=== PATIENT | female | born 1970 | race Caucasian/White ===

== ENCOUNTER 2019-03-10 14:50 | Emergency (ER) | payer SELFPAY ==
[2019-03-10 16:17] LABS: Absolute Lymphocytes (CBC) 2.4 K/uL (0.7-4.9); Basophils % 0.8 % (0-1.3); MPV 7.9 fL (7.6-11.3); RBC Red Blood Cell Count 4.05 M/uL (3.86-4.86)
[2019-03-10 16:28] LABS: Urine Blood 2+ (NEG); Urine Glucose NEGATIVE (NEG); Urine Protein NEGATIVE (NEG); Urine pH 5.5 (5.0-7.0)
--- NOTE | 2019-03-10 16:37 | RAD REPORT ---
EXAM DESCRIPTION: RAD - Chest Single View - 03/10/2019 4:14 pm CLINICAL HISTORY: Chest pain, dyspnea COMPARISON: None. TECHNIQUE: AP portable chest image was obtained 1608 hours . FINDINGS: Lungs are clear. Heart and vasculature are normal. No measurable pleural effusion and no p neumothorax. No acute bony abnormality seen. No acute aortic findings suspected. IMPRESSION: No acute cardiopulmonary process.
[2019-03-10 16:39] LABS: Albumin 3.8 g/dL (3.4-5.0); Bilirubin Total 0.3 mg/dL (0.2-1.0); Potassium 4.2 mmol/L (3.5-5.1)
[2019-03-10] MEDS ORDERED: DIAZEPAM 5 MG TABLET ONE (17:33)
[2019-03-10] MEDS ORDERED: MORPHINE 4 MG/ML SYR ONE (17:34)
[2019-03-10] MEDS ORDERED: Levofloxacin500mg IV 500 MG/100 ML BAG IV ONE (17:34)
[2019-03-10] MEDS ORDERED: ONDANSETRON 4 MG/2 ML VIAL ONE (17:34)
[2019-03-10] MEDS ORDERED: NA CHLORIDE 0.9% 1,000 ML ONE (17:34)
--- NOTE | 2019-03-10 17:35 | RAD REPORT ---
EXAM DESCRIPTION: CT - Chest Abdomen Pelvis W Cont - 03/10/2019 5:00 pm CLINICAL HISTORY: Fall, chest pain, rib pain, abdominal pain COMPARISON: None. TECHNIQUE: Following dynamic enhancement using 100 milliliters nonionic IV contrast, axial imaging o f the chest, abdomen and pelvis was performed. Biphasic technique was utilized through the abdomen. No oral contrast administered. All CT scans are performed using dose optimization technique as appropriate and may include automated exposure control or mA/KV adjustment according to patient size. FINDINGS: Minimal scarring or atelectasis change in the right base. No pulmonary contusion or acute lung parenchymal process. No pleural effusion, pleural thickening or pneumothorax. No significant aor tic or pulmonary arterial tree finding. Mediastinal and hilar regions show no mass or abnormal lympha denopathy. No chest wall mass or axillary lymphadenopathy. No displaced rib fractures are present and no nondisplaced rib fractures identifiable. No clavicle, scapula or shoulder joint abnormalities marifer ntifiable. The liver, spleen and pancreas show no suspicious findings. Gallbladder and biliary tree are unremark able. Gallstones can be occult on CT imaging. Symmetric renal function is seen with no mass or hydro nephrosis. No adrenal abnormalities. No dilated bowel loops or focal bowel wall thickening. No acute GI findings seen. No free fluid, free air or stranding. No acute or destructive bony process. Degenerative changes are present. No significant vascular findings. IMPRESSION: CT chest, abdomen and pelvis imaging shows no acute traumatic injury. No significant fin dings noted.
--- NOTE | 2019-03-10 18:06 | ER ---
Nurse's Notes [facility] Name: Kathia Avery Age: 48 yrs Sex: Female : 1970 Arrival Date: 03/10/2019 Time: 14:55 Bed 19 Private MD: Diagnosis: Fall due to bumping against object;Multiple fractures of ribs, right side-clinically;Urinary tract infection, site not specified Presentation: 03/10 14:57 Presenting complaint: Patient states: last Saturday a large dog took me down and it tw2 hasnt got better its go worse and i hurts when i take a deep breath. Transition of care: patient was not received from another setting of care. Onset of symptoms was March 10, 2019. Risk Assessment: Do you want to hurt yourself or someone else? Patient reports no desire to harm self or others. Initial Sepsis Screen: Does the patient meet any 2 criteria? No. Patient's initial sepsis screen is negative. Does the patient have a suspected source of infection? No. Patient's initial sepsis screen is negative. Care prior to arrival: None. 14:57 Method Of Arrival: Ambulatory tw2 14:57 Acuity: FELISHA 3 tw2 Triage Assessment: 15:00 General: Appears uncomfortable, Behavior is cooperative. Pain: Complains of pain in tw2 RIGHT ribs. 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 - Social history:: Smoking status: Patient uses tobacco products, smokes one-half pack cigarettes per day. - Ebola Screening: : Patient denies travel to an Ebola-affected area in the 21 days before illness onset. Screenin:45 Abuse screen: Denies threats or abuse. Denies injuries from another. Nutritional aj1 screening: No deficits noted. Tuberculosis screening: No symptoms or risk factors identified. 17:45 Fall Risk None identified. aj1 Assessment: 15:45 General: Appears in no apparent distress. uncomfortable, Behavior is calm, cooperative, aj1 appropriate for age. Pain: Complains of pain in right breast and right lateral anterior chest and right lateral posterior chest and anterior aspect of right upper chest Pain does not radiate. Pain currently is 8 out of 10 on a pain scale. Aggravated by repositioning. Neuro: Level of Consciousness is awake, alert, obeys commands, Oriented to person, place, time, situation. Cardiovascular: Reports chest pain, that is aggravated by movement. States that she fell and hit her chest recently Heart tones S1 S2 present Patient's skin is warm and dry. Respiratory: Airway is patent Respiratory effort is even, unlabored, Respiratory pattern is regular, symmetrical, Breath sounds are clear bilaterally. GI: No signs and/or symptoms were reported involving the gastrointestinal system. : No signs and/or symptoms were reported regarding the genitourinary system. EENT: No signs and/or symptoms were reported regarding the EENT system. Derm: No signs and/or symptoms reported regarding the dermatologic system. Skin is pink, warm \T\ dry. normal. Musculoskeletal: No signs and/or symptoms reported regarding the musculoskeletal system. Circulation, motion, and sensation intact. 16:45 Reassessment: Patient appears in no apparent distress at this time. No changes from aj1 previously documented assessment. Patient and/or family updated on plan of care and expected duration. Pain level reassessed. Patient is alert, oriented x 3, equal unlabored respirations, skin warm/dry/pink. 17:45 Reassessment: Patient appears in no apparent distress at this time. No changes from aj1 previously documented assessment. Patient and/or family updated on plan of care and expected duration. Pain level reassessed. Patient is alert, oriented x 3, equal unlabored respirations, skin warm/dry/pink. Vital Signs: 14:58 BP 115 / 77; Pulse 87; Resp 17; Temp 97.6(TE); Pulse Ox 100% on R/A; Weight 61.23 kg tw2 (R); Height 5 ft. 0 in. (152.40 cm) (R); Pain 9/10; 15:45 BP 122 / 89; Pulse 92; Resp 18; Pulse Ox 97% on R/A; aj1 17:45 BP 112 / 62; Pulse 80; Resp 16; Pulse Ox 98% on R/A; aj1 14:58 Body Mass Index 26.37 (61.23 kg, 152.40 cm) tw2 ED Course: 14:55 Patient arrived in ED. mr 14:58 Triage completed. tw2 14:58 Arm band placed on. tw2 15:08 John Harrington MD is Attending Physician. [facility] 15:43 Radiology exam delayed due to lab results not completed at this time. (BUN/Creatinine) vm2 IV insertion attempt and/or patient not having appropriate IV at this time. 15:44 Sylwia Hackett, RN is Primary Nurse. aj1 15:45 Patient has correct armband on for positive identification. Bed in low position. Call aj1 light in reach. Side rails up X 1. 16:07 Urine Culture Sent. aj1 16:14 Chest Single View XRAY In Process Unspecified. EDMS 16:16 Radiology exam delayed due to lab results not completed at this time. (BUN/Creatinine). vm2 16:39 Radiology exam delayed due to lab results not completed at this time. (BUN/Creatinine). vm2 16:[address] 2 17:03 CT Chest, Abdomen, Pelvis - W/Contrast: iv only In Process Unspecified. EDMS 18:54 No provider procedures requiring assistance completed. IV discontinued, intact, hb bleeding controlled, No redness/swelling at site. Pressure dressing applied. Administered Medications: 17:43 Drug: Zofran 4 mg Route: IVP; Site: right antecubital; hb 18:45 Follow up: Response: No adverse reaction; Pain is decreased; RASS: Alert and Calm (0) aj1 18:45 Follow up: Response: No adverse reaction [facility] 17:43 Drug: Valium 5 mg Route: PO; hb 18:45 Follow up: Response: No adverse reaction [facility] 17:43 Drug: levofloxacin 500 mg Volume: 100 ml; Route: IVPB; Infused Over: 60 mins; Site: hb right antecubital; 18:45 Follow up: IV Status: Completed infusion; IV Intake: 100ml aj1 17:44 Drug: NS 0.9% 1000 ml Route: IV; Rate: 1 bolus; Site: right antecubital; hb 18:45 Follow up: IV Status: Completed infusion; IV Intake: 1000ml [facility] 17:44 Drug: morphine 4 mg Route: IVP; Site: right antecubital; hb 18:45 Follow up: Response: No adverse reaction; Pain is decreased; RASS: Alert and Calm (0) aj1 Intake: 18:45 IV: 1000ml; Total: 1000ml. aj1 18:45 IV: 100ml; Total: 1100ml. aj1 Outcome: 18:05 Discharge ordered by . kenyetta 18:54 Discharged to home ambulatory. 18:54 Condition: stable 18:54 Discharge instructions given to patient, Instructed on discharge instructions, follow up and referral plans. medication usage, Demonstrated understanding of instructions, follow-up care, medications, Prescriptions given X 3. 18:56 Patient left the ED. hb Signatures: Dispatcher [employer] EDMS Sylwia Hackett RN RN aj1 John Harrington MD MD cha Rivera, Mary mr Baxter, Heather, RN RN hb Wise, Tara, RN RN [facility]
--- NOTE | 2019-03-10 18:06 | EDPHYS ---
Physician Documentation [facility] Name: Kathia Avery Age: 48 yrs Sex: Female : 1970 Arrival Date: 03/10/2019 Time: 14:55 Bed 19 Private MD: ED Physician John Harrington HPI: 03/10 15:37 This 48 yrs old Female presents to ER via Ambulatory with complaints of Fall kenyetta Injury, Rib pain. 15:37 Details of fall: The patient fell from an upright position, while running. Onset: The kenyetta symptoms/episode began/occurred 6 day(s) ago. Associated injuries: The patient sustained injury to the chest, pain with breathing, pain with movement, tenderness. Severity of symptoms: At their worst the symptoms were moderate, in the emergency department the symptoms are unchanged. The patient has not experienced similar symptoms in the past. 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 - Social history:: Smoking status: Patient uses tobacco products, smokes one-half pack cigarettes per day. - Ebola Screening: : Patient denies travel to an Ebola-affected area in the 21 days before illness onset. ROS: 15:38 Constitutional: Negative for fever, chills, and weight loss, Eyes: Negative for injury, kenyetta pain, redness, and discharge, ENT: Negative for injury, pain, and discharge, Neck: Negative for injury, pain, and swelling, Cardiovascular: Negative for chest pain, palpitations, and edema, Abdomen/GI: Negative for abdominal pain, nausea, vomiting, diarrhea, and constipation, Back: Negative for injury and pain, : Negative for injury, bleeding, discharge, and swelling, MS/Extremity: Negative for injury and deformity, Skin: Negative for injury, rash, and discoloration, Neuro: Negative for headache, weakness, numbness, tingling, and seizure, Psych: Negative for depression, anxiety, suicide ideation, homicidal ideation, and hallucinations, Allergy/Immunology: Negative for hives, rash, and allergies, Endocrine: Negative for neck swelling, polydipsia, polyuria, polyphagia, and marked weight changes, Hematologic/Lymphatic: Negative for swollen nodes, abnormal bleeding, and unusual bruising. 15:38 Respiratory: Positive for cough, pleurisy, of the anterior aspect of right upper chest, diaphragm, right lateral posterior chest, right lateral anterior chest and right breast, shortness of breath. Exam: 15:38 Constitutional: This is a well developed, well nourished patient who is awake, alert, kenyetta and in no acute distress. Head/Face: Normocephalic, atraumatic. Eyes: Pupils equal round and reactive to light, extra-ocular motions intact. Lids and lashes normal. Conjunctiva and sclera are non-icteric and not injected. Cornea within normal limits. Periorbital areas with no swelling, redness, or edema. ENT: Nares patent. No nasal discharge, no septal abnormalities noted. Tympanic membranes are normal and external auditory canals are clear. Oropharynx with no redness, swelling, or masses, exudates, or evidence of obstruction, uvula midline. Mucous membranes moist. Neck: Trachea midline, no thyromegaly or masses palpated, and no cervical lymphadenopathy. Supple, full range of motion without nuchal rigidity, or vertebral point tenderness. No Meningismus. Cardiovascular: Regular rate and rhythm with a normal S1 and S2. No gallops, murmurs, or rubs. Normal PMI, no JVD. No pulse deficits. Respiratory: Lungs have equal breath sounds bilaterally, clear to auscultation and percussion. No rales, rhonchi or wheezes noted. No increased work of breathing, no retractions or nasal flaring. Abdomen/GI: Soft, non-tender, with normal bowel sounds. No distension or tympany. No guarding or rebound. No evidence of tenderness throughout. Back: No spinal tenderness. No costovertebral tenderness. Full range of motion. Female : Normal external genitalia. Skin: Warm, dry with normal turgor. Normal color with no rashes, no lesions, and no evidence of cellulitis. MS/ Extremity: Pulses equal, no cyanosis. Neurovascular intact. Full, normal range of motion. Neuro: Awake and alert, GCS 15, oriented to person, place, time, and situation. Cranial nerves II-XII grossly intact. Motor strength 5/5 in all extremities. Sensory grossly intact. Cerebellar exam normal. Normal gait. Psych: Awake, alert, with orientation to person, place and time. Behavior, mood, and affect are within normal limits. 15:38 Chest/axilla: Inspection: normal, Palpation: tenderness, that is mild, that is moderate, of the anterior aspect of right upper chest, right lateral posterior chest, right lateral anterior chest and right breast. Vital Signs: 14:58 BP 115 / 77; Pulse 87; Resp 17; Temp 97.6(TE); Pulse Ox 100% on R/A; Weight 61.23 kg tw2 (R); Height 5 ft. 0 in. (152.40 cm) (R); Pain 9/10; 15:45 BP 122 / 89; Pulse 92; Resp 18; Pulse Ox 97% on R/A; aj1 17:45 BP 112 / 62; Pulse 80; Resp 16; Pulse Ox 98% on R/A; aj1 14:58 Body Mass Index 26.37 (61.23 kg, 152.40 cm) tw2 MDM: 15:08 Patient medically screened. [facility] 15:39 Data reviewed: vital signs, nurses notes, lab test result(s), radiologic studies, CT [facility] scan, plain films. 03/10 15:36 Order name: CBC with Diff; Complete Time: 18:03 [facility] 03/10 15:36 Order name: Comprehensive Metabolic Panel; Complete Time: 18:03 [facility] 03/10 15:36 Order name: Chest Single View XRAY; Complete Time: 18:03 [facility] 03/10 15:36 Order name: INCENTIVE SPIROMETRY [facility] 03/10 15:36 Order name: Urine Culture [facility] 03/10 16:03 Order name: Urine Dipstick--Ancillary (enter results); Complete Time: 18:03 03/10 15:36 Order name: CT Chest, Abdomen, Pelvis - W/Contrast: iv only; Complete Time: 18:03 [facility] 03/10 15:36 Order name: Urine Dipstick-Ancillary (obtain specimen); Complete Time: 16:07 [facility] Administered Medications: 17:43 Drug: Zofran 4 mg Route: IVP; Site: right antecubital; hb 18:45 Follow up: Response: No adverse reaction; Pain is decreased; RASS: Alert and Calm (0) [facility] 18:45 Follow up: Response: No adverse reaction aj1 17:43 Drug: Valium 5 mg Route: PO; hb 18:45 Follow up: Response: No adverse reaction aj1 17:43 Drug: levofloxacin 500 mg Volume: 100 ml; Route: IVPB; Infused Over: 60 mins; Site: hb right antecubital; 18:45 Follow up: IV Status: Completed infusion; IV Intake: 100ml aj1 17:44 Drug: NS 0.9% 1000 ml Route: IV; Rate: 1 bolus; Site: right antecubital; hb 18:45 Follow up: IV Status: Completed infusion; IV Intake: 1000ml aj1 17:44 Drug: morphine 4 mg Route: IVP; Site: right antecubital; hb 18:45 Follow up: Response: No adverse reaction; Pain is decreased; RASS: Alert and Calm (0) aj Disposition: 03/10/19 18:05 Discharged to Home. Impression: Fall due to bumping against object, Multiple fractures of ribs, right side - clinically, Urinary tract infection, site not specified. - Condition is Stable. - Discharge Instructions: Fall Prevention in the Home, Rib Fracture, Urinary Tract Infection, Adult, Urinary Tract Infection, Adult, [id number], Fall Prevention in the Home, [id number]-[id number], Rib Fracture, [id number]. - Prescriptions for Tylenol- Codeine #3 300-30 mg Oral Tablet - take 2 tablet by ORAL route every 6 hours As needed; 30 tablet. Valium 5 mg Oral Tablet - take 1 tablet by ORAL route every 8 hours As needed; 20 tablet. Levaquin 500 mg Oral Tablet - take 1 tablet by ORAL route once daily for 7 days; 7 tablet. - Medication Reconciliation Form, Thank You Letter, Antibiotic Education, Prescription Opioid Use form. - Follow up: Private Physician; When: 2 - 3 days; Reason: Recheck today's complaints, Continuance of care, Re-evaluation by your physician. - Problem is new. - Symptoms have improved. Signatures: Dispatcher [employer] John Everett MD MD cha Baxter, Heather, RN RN Karlie Nicolas RN RN tw2 Sylwia Hackett RN aj1 Corrections: (The following items were deleted from the chart) 18:56 18:05 03/10/2019 18:05 Discharged to Home. Impression: Fall due to bumping against hb object; Multiple fractures of ribs, right side - clinically; Urinary tract infection, site not specified. Condition is Stable. Discharge Instructions: Fall Prevention in the Home, Rib Fracture, Fall Prevention in the Home, [id number], Rib Fracture, [id number], Urinary Tract Infection, Adult, Urinary Tract Infection, Adult, [id number]. Prescriptions for Tylenol-Codeine #3 300-30 mg Oral Tablet - take 2 tablet by ORAL route every 6 hours As needed; 30 tablet, Valium 5 mg Oral Tablet - take 1 tablet by ORAL route every 8 hours As needed; 20 tablet, Levaquin 500 mg Oral Tablet - take 1 tablet by ORAL route once daily for 7 days; 7 tablet. and Forms are Medication Reconciliation Form, Thank You Letter, Antibiotic Education, Prescription Opioid Use. Follow up: Private Physician; When: 2 - 3 days; Reason: Recheck today's complaints, Continuance of care, Re-evaluation by your physician. Problem is new. Symptoms have improved. kenyetta
[2019-03-10 20:13] VITALS: BP 115/77; TEMP 97.6; O2SAT 100
== END 2019-03-10 18:56 | disposition home or self-care (01) ==
LOC: ER 14:50
DX: S22.41XA Multiple fractures of ribs, right side, initial encounter for closed fracture (principal); N39.0 Urinary tract infection, site not specified; F17.210 Nicotine dependence, cigarettes, uncomplicated; W19.XXXA Unspecified fall, initial encounter; Y93.02 Activity, running; Y92.9 Unspecified place or not applicable; Z88.0 Allergy status to penicillin; Z88.2 Allergy status to sulfonamides; Z88.6 Allergy status to analgesic agent
CPT/HCPCS: 36415; 71045; 71260; 74177; 80053; 81003; 85025; 87077; 87086; 87088; 87186; 96365; 96375; 99284; J2405; J7030; Q9967

== ENCOUNTER 2020-03-15 12:26 | Emergency (ER) | payer OTHER, SELFPAY ==
[2020-03-15] MEDS ORDERED: HYDROCODONE/APAP 5/325 MG TAB ONE (14:12)
--- NOTE | 2020-03-15 14:17 | RAD REPORT ---
EXAM DESCRIPTION: RAD - Foot Right 3 View - 03/15/2020 2:11 pm CLINICAL HISTORY: Right foot pain FINDINGS: No fracture or dislocation is seen
--- NOTE | 2020-03-15 14:33 | ER ---
Nurse's Notes [facility] Name: Kathia Avery Age: 49 yrs Sex: Female : 1970 Arrival Date: 03/15/2020 Time: 12:32 Bed 19 Private MD: Diagnosis: Contusion of right foot Presentation: 03/15 12:40 Chief complaint: Patient states: Someone accidentally stepped on right foot yesterday. ll1 Pain and swelling since. Coronavirus screen: Client denies travel out of the [place] in the last 14 days. At this time, the client does not indicate any symptoms associated with coronavirus-19. Ebola Screen: Patient denies travel to an Ebola-affected area in the 21 days before illness onset. Initial Sepsis Screen: Does the patient meet any 2 criteria? No. Patient's initial sepsis screen is negative. Does the patient have a suspected source of infection? Yes: Bone or joint infection. Risk Assessment: Do you want to hurt yourself or someone else? Patient reports no desire to harm self or others. Onset of symptoms was March 14, 2020. 12:40 Method Of Arrival: Wheelchair ll1 12:40 Acuity: FELISHA 4 ll1 Historical: - Allergies: 12:43 NSAIDS; ll1 12:43 PENICILLINS; ll1 12:43 Sulfa (Sulfonamide Antibiotics); ll1 - PMHx: 12:43 Chronic pain; back; ll1 - Immunization history:: Flu vaccine is up to date. - Social history:: Smoking status: Patient reports the use of cigarette tobacco products, smokes one-half pack cigarettes per day. Screenin:30 Abuse screen: Denies threats or abuse. Denies injuries from another. Nutritional jl7 screening: No deficits noted. Tuberculosis screening: No symptoms or risk factors identified. Fall Risk None identified. Assessment: 13:45 General: Appears in no apparent distress. uncomfortable, Behavior is calm, cooperative, jl7 appropriate for age. Pain: Complains of pain in right foot Pain currently is 9 out of 10 on a pain scale. Neuro: Level of Consciousness is awake, alert, obeys commands, Oriented to person, place, time, situation. Cardiovascular: Patient's skin is warm and dry. Respiratory: Airway is patent Respiratory effort is even, unlabored, Respiratory pattern is regular, symmetrical. Derm: Skin is pink, warm \T\ dry. Musculoskeletal: Swelling present in right foot. Vital Signs: 12:40 BP 110 / 85; Pulse 87; Resp 16; Temp 97.2; Pulse Ox 100% ; Weight 62.14 kg; Height 5 ll1 ft. 0 in. (152.40 cm); Pain 9/10; 12:40 Body Mass Index 26.76 (62.14 kg, 152.40 cm) ll1 ED Course: 12:32 Patient arrived in ED. mr 12:42 Triage completed. ll1 12:43 Arm band placed on. ll1 13:26 Guillermo Tam PA is PHCP. [facility] 13:26 Alejandro Moreira MD is Attending Physician. m 14:11 Foot Right 3 View XRAY In Process Unspecified. EDMS 14:20 Breanne Del Rio, LATOYA is Primary Nurse. jl7 14:45 Patient has correct armband on for positive identification. Bed in low position. Call jl7 light in reach. Side rails up X 1. 14:45 Crutch training done. Ortho shoe applied to right foot. jl7 14:55 No provider procedures requiring assistance completed. Patient did not have IV access jl7 during this emergency room visit. Administered Medications: 14:00 Drug: [place] 5 mg-325 mg 1 tabs Route: PO; 14:30 Follow up: Response: No adverse reaction; Pain is decreased jl7 Outcome: 14:32 Discharge ordered by . [facility] 14:55 Discharged to home via wheelchair, with crutches, with family. jl7 14:55 Condition: stable 14:55 Discharge instructions given to patient, Instructed on discharge instructions, follow up and referral plans. medication usage, crutch walking, Demonstrated understanding of instructions, follow-up care, medications, crutch walking, Prescriptions given X 1. 14:57 Patient left the ED. jl7 Signatures: Dispatcher [employer] EDMS Guillermo Tam PA PA jmm BruceAnanya mr MedinaKaren, RN RN ss Breanne Del Rio, LATOYA RN jl7 Francy Odom RN RN ll1
--- NOTE | 2020-03-15 14:33 | EDPHYS ---
Physician Documentation [facility] Name: Kathia Avery Age: 49 yrs Sex: Female : 1970 Arrival Date: 03/15/2020 Time: 12:32 Bed 19 Private MD: ED Physician Alejandro Moreira HPI: 03/15 14:29 This 49 yrs old Female presents to ER via Wheelchair with complaints of Foot jmm Injury. 14:29 The patient presents with an injury, pain. Onset: The symptoms/episode began/occurred jmm acutely, yesterday. Modifying factors: The symptoms are alleviated by nothing. the symptoms are aggravated by movement, weight bearing. Associated signs and symptoms: Pertinent positives: swelling. This is a 49 year old female with a history of chronic pain that presents to the ED with complaints of right foot pain after being stepped on. Patient developed increased swelling today with pain radiating up to the knee. . Historical: - Allergies: 12:43 NSAIDS; ll1 12:43 PENICILLINS; ll1 12:43 Sulfa (Sulfonamide Antibiotics); ll1 - PMHx: 12:43 Chronic pain; back; ll1 - Immunization history:: Flu vaccine is up to date. - Social history:: Smoking status: Patient reports the use of cigarette tobacco products, smokes one-half pack cigarettes per day. ROS: 14:29 Constitutional: Negative for fever, chills, and weight loss, Cardiovascular: Negative jmm for chest pain, palpitations, and edema, Respiratory: Negative for shortness of breath, cough, wheezing, and pleuritic chest pain. 14:29 MS/extremity: Positive for injury or acute deformity, pain. 14:29 All other systems are negative. Exam: 14:29 Constitutional: This is a well developed, well nourished patient who is awake, alert, jmm and in no acute distress. Head/Face: atraumatic. Eyes: EOMI, no conjunctival erythema appreciated ENT: Moist Mucus Membranes Neck: Trachea midline, Supple Chest/axilla: Normal chest wall appearance and motion. Cardiovascular: Regular rate and rhythm. No edema appreciated Respiratory: Normal respirations, no respiratory distress appreciated Abdomen/GI: Non distended, soft Back: Normal ROM Skin: General appearance color normal 14:29 Musculoskeletal/extremity: swelling noted to the right foot, dorsum ttp, full dorsalis pulse, compartments are soft, NVI. 14:29 Skin: Appearance: Color: normal in color. 14:29 Neuro: Orientation: is normal, Mentation: is normal, Memory: is normal. 14:29 Psych: Behavior/mood is pleasant, cooperative. Vital Signs: 12:40 BP 110 / 85; Pulse 87; Resp 16; Temp 97.2; Pulse Ox 100% ; Weight 62.14 kg; Height 5 ll1 ft. 0 in. (152.40 cm); Pain 9/10; 12:40 Body Mass Index 26.76 (62.14 kg, 152.40 cm) ll1 MDM: 13:28 Patient medically screened. [facility] 14:31 Data reviewed: vital signs, nurses notes. Counseling: I had a detailed discussion with [facility] the patient and/or guardian regarding: the historical points, exam findings, and any diagnostic results supporting the discharge/admit diagnosis, radiology results, the need for outpatient follow up, to return to the emergency department if symptoms worsen or persist or if there are any questions or concerns that arise at home. ED course: Xray negative for fracture. Patient advised to follow up with pcp and otherwise given strict return precautions. Patient understood and agrees with the plan of care. . 03/15 12:51 Order name: Foot Right 3 View XRAY; Complete Time: 14:45 snw 03/15 13:31 Order name: Ortho shoe; Complete Time: 14:55 [facility] 03/15 13:31 Order name: Crutches; Complete Time: 14:55 [facility] Administered Medications: 14:00 Drug: [place] 5 mg-325 mg 1 tabs Route: PO; ss 14:30 Follow up: Response: No adverse reaction; Pain is decreased jl7 Disposition: 03/16 06:24 Co-signature as Attending Physician, Alejandro Moreira MD I agree with the assessment and kdr plan of care. Disposition: 03/15/20 14:32 Discharged to Home. Impression: Contusion of right foot. - Condition is Stable. - Discharge Instructions: Foot Contusion. - Prescriptions for orphenadrine citrate 100 mg Oral Tablet Sustained Release - take 1 tablet by ORAL route 2 times per day As needed; 20 tablet. - Medication Reconciliation Form, Thank You Letter, Antibiotic Education, Prescription Opioid Use form. - Follow up: Private Physician; When: 2 - 3 days; Reason: Recheck today's complaints, Continuance of care, Re-evaluation by your physician. Signatures: Dispatcher [employer] EDMS Alejandro Moreira MD MD kdr Mickail, Joel, PA PA jmm Smirch, Shelby, RN RN ss Breanne Del Rio RN RN jl7 Francy Odom RN RN ll1 Corrections: (The following items were deleted from the chart) 03/15 14:57 14:32 03/15/2020 14:32 Discharged to Home. Impression: Contusion of right foot. jl7 Condition is Stable. Forms are Medication Reconciliation Form, Thank You Letter, Antibiotic Education, Prescription Opioid Use. Follow up: Private Physician; When: 2 - 3 days; Reason: Recheck today's complaints, Continuance of care, Re-evaluation by your physician. lenny
[2020-03-15 16:00] VITALS: BP 110/85; TEMP 97.2; O2SAT 100
== END 2020-03-15 14:57 | disposition home or self-care (01) ==
LOC: ER 12:26
DX: S90.31XA Contusion of right foot, initial encounter (principal); W50.0XXA Accidental hit or strike by another person, initial encounter; Y93.9 Activity, unspecified; Y92.9 Unspecified place or not applicable; F17.210 Nicotine dependence, cigarettes, uncomplicated; Z88.0 Allergy status to penicillin; Z88.2 Allergy status to sulfonamides; Z88.6 Allergy status to analgesic agent
CPT/HCPCS: 99284

== ENCOUNTER 2023-04-07 17:43 | Emergency (ER) | payer OTHER, SELFPAY ==
[2023-04-07] MEDS ORDERED: MORPHINE 4 MG/ML SYR ONE ×2 (18:21→19:17)
[2023-04-07] MEDS ORDERED: ONDANSETRON 4 MG/2 ML VIAL ONE (18:21)
[2023-04-07] MEDS ORDERED: NA CHLORIDE 0.9% 1,000 ML ONE ×2 (18:22→20:06)
[2023-04-07 18:25] LABS: Absolute Lymphocytes (CBC) 1.7 K/uL (0.7-4.9); Hematocrit 39.9 % (36.0-45.0); Lymphocytes % 19.9 % (15.3-44.8); MCV 95.1 fL (80-100); MPV 7.3 fL (7.6-11.3); Platelets 235 thou/uL (152-406); RBC Red Blood Cell Count 4.19 M/uL (3.86-4.86)
[2023-04-07 18:47] LABS: Albumin 3.3 g/dL (3.4-5.0); Bilirubin Total 0.6 mg/dL (0.2-1.0); Potassium 3.5 mEq/L (3.5-5.1); Protein, Total 8.1 g/dL (6.4-8.2)
--- NOTE | 2023-04-07 19:36 | RAD REPORT ---
EXAM DESCRIPTION: CT - Abdomen Pelvis W Contrast - 04/07/2023 7:18 pm CLINICAL HISTORY: Abdominal pain COMPARISON: 2019 TECHNIQUE: Computed axial tomography of the abdomen pelvis was obtained. 100 cc Isovue-300 was admin istered intravenously. Oral contrast was not requested which limits evaluation of bowel and appendix All CT scans are performed using dose optimization technique as appropriate and may include automated exposure control or mA/KV adjustment according to patient size. FINDINGS: Fatty liver. Moderate peripancreatic stranding with small amount of ill-defined fluid. Small amount of fluid exten ds into the right anterior pararenal space. No pseudocyst. Spleen, adrenals, kidneys are unremarkable Normal appendix. No evidence of diverticulitis. Hysterectomy. No adnexal mass IMPRESSION: Moderate pancreatitis
[2023-04-07 19:38] LABS: Specific Gravity 1.015 (1.005-1.030); Urine Bacteria None Seen /HPF (<20); Urine Bilirubin NEGATIVE (Negative); Urine Blood Negative (Negative); Urine Clarity Turbid (Clear); Urine Color Light-Yellow (Yellow); Urine Glucose NEGATIVE (Negative); Urine Mucus Slight /HPF (None Seen); Urine Protein TRACE (Negative); Urine RBC <5 /HPF (None Seen); Urine Urobilinogen Normal (Normal)
[2023-04-07] MEDS ORDERED: HYDROMORPHONE HCL 1 MG/ML INJ ONE (20:06)
--- NOTE | 2023-04-07 20:36 | EDPHYS ---
Physician Documentation [facility] Name: Kathia Avery Age: 52 yrs Sex: Female : 1970 Arrival Date: 04/07/2023 Time: 17:43 Bed 20 Private MD: ED Physician Elena Baker HPI: 04/07 18:02 This 52 yrs old Female presents to ER via Ambulatory with complaints of Abdominal Pain, ec2 Nausea/Vomiting. 18:02 Patient arrives today due to concern for upper abdominal pain. Patient reports that she ec2 is having worsening upper abdominal pain which is a prompted evaluation, states a history of gallbladder issues, has previous hysterectomy however no previous right upper quadrant procedures. Patient reports some associated nausea and vomiting, no fevers or chills. Patient denies any urinary complaints. Patient reports no cough or cold symptoms.. Historical: - Allergies: 17:52 NSAIDS; ss 17:52 PENICILLINS; ss 17:52 Sulfa (Sulfonamide Antibiotics); ss - Home Meds: 17:52 None [Active]; ss - PMHx: 17:52 Chronic pain; back; "bad gallbladder" (Chronic pain); ss - Immunization history:: Adult Immunizations up to date. - Social history:: Smoking status: Patient reports the use of cigarette tobacco products, smokes one pack cigarettes per day. Patient uses alcohol, on a daily basis. ROS: 18:05 Constitutional: as per hpi ec2 Exam: 18:05 Constitutional: GEN: NAD Head: atraumatic Eyes: EOMI Ears: External ears are ec2 normal. CV: regular rate LUNGS: no respiratory distress ABD: Tender in the epigastrium and right upper quadrant, no guarding, not rigid SKIN: no evidence of rashes MSK: no evidence of trauma NEURO: moves all extremities equally Vital Signs: 17:50 Pulse 116; Resp 22; Temp 97.9(TE); Pulse Ox 99% on R/A; Weight 70.76 kg; Height 5 ft. 1 ss in. ; 17:52 BP 148 / 91; ss 18:01 BP 172 / 92; Pulse 108; Resp 22; Temp 97(TE); Pulse Ox 97% on R/A; tm6 18:49 BP 142 / 79; Pulse 76; Resp 22; Pulse Ox 100% ; tm6 18:49 Pain 10/10; tm6 19:00 BP 182 / 90; Pulse 97; Resp 20; Pulse Ox 100% ; Pain 10/10; vc1 20:21 BP 161 / 84; Pulse 82; Resp 20; Pulse Ox 97% ; vc1 17:50 Body Mass Index 29.48 (70.76 kg, 154.94 cm) ss 18:49 Pain Scale: Adult tm6 19:00 Pain Scale: Adult vc1 MDM: 17:49 Patient medically screened. ec2 18:05 Data reviewed: vital signs. ED course: Patient arrives today due to concern for upper ec2 abdominal pain. Examination remarkable for abdominal findings as noted above. Will obtain lab work, CT abdomen pelvis, treat the patient symptoms. Currently considered process pancreatitis, cholelithiasis, cholecystitis. Will treat the patient symptoms with crystalloid, antiemetic as well as morphine.. 19:20 ED course: Patient signed out to oncoming physician with pending lab work and imaging.. ec2 19:28 ED course: Patient signed out to me by daytime physician at 7 PM. Patient is a sp3 52-year-old female with chronic pain, prior gallbladder pathology, presents to the ED with right upper quadrant abdominal pain. Work-up is pending including CT scan of the abdomen pelvis and disposition will be subsequent to that. Additional dose of pain medicine has been given however we will be careful given her chronic pain history.. 19:47 ED course: Patient CT scan demonstrates moderate pancreatitis with lipase level also sp3 reading at April 2000. AST ALT are elevated however T. bili is normal and CT demonstrates no significant biliary pathology. There is also no pancreatic pseudocyst. Patient elects to try p.o. challenge and be discharged home. We will give additional fluids and Dilaudid prior to discharge. If she is not able to tolerate, we will admit her to the hospital.. 20:34 ED course: Patient feels much improved after last pain medication and IV fluids. She is sp3 tolerating clear liquid diet. I did offer admission given her lipase level at 1999 however she chooses to go home and states she will return if she is worse. We will allow final amount of fluid to be given and discharge her subsequent to that.. 04/07 18:02 Order name: CBC with Diff; Complete Time: 18:26 ec2 04/07 18:02 Order name: CMP; Complete Time: 19:36 ec2 11/12 18:02 Order name: Lipase; Complete Time: 19:36 2 04/07 18:02 Order name: Urinalysis w/ reflexes; Complete Time: 19:47 [facility] 04/07 18:04 Order name: COVID-19 SARS RT PCR; Complete Time: 19:36 [facility] 04/07 18:04 Order name: Influenza Screen (a \\T\\ B); Complete Time: 19:36 [facility] 04/07 18:02 Order name: CT Abd/Pelvis - IV Contrast Only; Complete Time: 19:36 [facility] 04/07 18:02 Order name: IV Saline Lock; Complete Time: 18:17 2 04/07 18:02 Order name: Labs collected and sent; Complete Time: 18:17 [facility] 04/07 19:49 Order name: PO challenge: Clear liquid; Complete Time: 20:21 sp3 Administered Medications: 18:17 Drug: Ondansetron IVP 4 mg IVP once; over 2 minutes Route: IVP; Site: right forearm; tm6 19:00 Follow up: Response: No adverse reaction; No change in condition vc1 18:18 Drug: NS 0.9% IV 1000 ml IV at 1 bolus Per protocol; 1000 mL bolus Route: IV; Rate: 1 tm6 bolus; Site: right forearm; 18:18 Drug: morphine IVP or IV 4 mg IVP once over 4 mins Route: IVP; Infused Over: 4 mins; tm6 Site: right forearm; 21:19 Follow up: Response: No adverse reaction; No change in condition vc1 19:07 Drug: morphine IVP or IV 4 mg IVP once over 4 mins Route: IVP; Infused Over: 4 mins; vc1 Site: right antecubital; 19:45 Follow up: Response: No adverse reaction; No change in condition vc1 19:59 Drug: HYDROmorphone IVP 1 mg IVP once Route: IVP; Site: right antecubital; vc1 21:19 Follow up: Response: No adverse reaction; Pain is decreased vc1 20:00 Drug: NS 0.9% IV 1000 ml IV at 1 bolus Per protocol; 1000 mL bolus Route: IV; Rate: 1 vc1 bolus; Site: right antecubital; 21:38 Follow up: IV Status: Completed infusion; IV Intake: 1000ml vc1 Disposition Summary: 11/12/23 20:35 Discharge Ordered Notes: Location: Home sp3 Condition: Stable sp3 Diagnosis - Alcohol induced acute pancreatitis without necrosis or infection sp3 Followup: sp3 - With: Private Physician - When: Upon discharge from the Emergency Department - Reason: Recheck today's complaints, Continuance of care Discharge Instructions: - Discharge Summary Sheet sp3 - Acute Pancreatitis sp3 - Pancreatitis Eating Plan sp3 Forms: - Medication Reconciliation Form sp3 - Thank You Letter sp3 - Antibiotic Education sp3 - Prescription Opioid Use sp3 - Patient Portal Instructions sp3 - Leadership Thank You Letter sp3 Prescriptions: - Tramadol 50 mg Oral Tablet - take 1 tablet ORAL route every 8 hours as needed; 12 tablet; Refills: 0, sp3 Product Selection Permitted Signatures: Dispatcher [employer] Karen Sanford RN RN ss Elena Baker MD MD sp3 Elin Epperson RN RN vc1 Mukesh Marks MD MD ec2 Wing Felix RN RN tm6 Corrections: (The following items were deleted from the chart) 18:05 18:02 Patient arrives today due to concern for upper abdominal pain. Patient reports ec2 that she is having worsening upper abdominal pain which is a prompted evaluation, states a history of gallbladder issues, has previous hysterectomy however no previous right upper quadrant procedures. Patient reports some associated nausea and vomiting, no fevers or chills.. ec2
--- NOTE | 2023-04-07 20:36 | ER ---
Nurse's Notes [facility] Name: Kathia Avery Age: 52 yrs Sex: Female : 1970 Arrival Date: 04/07/2023 Time: 17:43 Bed 20 Private MD: Diagnosis: Alcohol induced acute pancreatitis without necrosis or infection Presentation: 04/07 17:50 Chief complaint: Patient states: abd pain, N/V that began yesterday. Pt reports she has ss had a "bad gallbladder" for the past 12 years and is supposed to have it out. Coronavirus screen: Client denies travel out of the [place] in the last 14 days. Ebola Screen: Patient denies exposure to infectious person. Patient denies travel to an Ebola-affected area in the 21 days before illness onset. Initial Sepsis Screen: Does the patient meet any 2 criteria? No. Patient's initial sepsis screen is negative. Does the patient have a suspected source of infection? No. Patient's initial sepsis screen is negative. Risk Assessment: Do you want to hurt yourself or someone else? Patient reports no desire to harm self or others. Onset of symptoms was April 07, 2023. 17:50 Method Of Arrival: Ambulatory ss 17:50 Acuity: FELISHA 3 ss Historical: - Allergies: 17:52 NSAIDS; ss 17:52 PENICILLINS; ss 17:52 Sulfa (Sulfonamide Antibiotics); ss - Home Meds: 17:52 None [Active]; ss - PMHx: 17:52 Chronic pain; back; "bad gallbladder" (Chronic pain); ss - Immunization history:: Adult Immunizations up to date. - Social history:: Smoking status: Patient reports the use of cigarette tobacco products, smokes one pack cigarettes per day. Patient uses alcohol, on a daily basis. Screenin:01 [facility] ED Fall Risk Assessment (Adult) History of falling in the last 3 months, tm6 including since admission No falls in past 3 months (0 pts). Abuse screen: Denies threats or abuse. Denies injuries from another. Nutritional screening: No deficits noted. Tuberculosis screening: No symptoms or risk factors identified. Assessment: 18:01 General: Appears uncomfortable, ill, Behavior is calm, cooperative. Pain: Complains of tm6 pain in abdomen Pain currently is 8 out of 10 on a pain scale. Neuro: Level of Consciousness is awake, alert, obeys commands, Oriented to person, place, time, situation. Cardiovascular: Capillary refill < 3 seconds Patient's skin is warm and dry. Respiratory: Airway is patent Respiratory effort is even, unlabored, Respiratory pattern is regular, symmetrical. GI: Bowel sounds present X 4 quads. Abdomen is tender to palpation in left upper quadrant. : No signs and/or symptoms were reported regarding the genitourinary system. EENT: No signs and/or symptoms were reported regarding the EENT system. Derm: No signs and/or symptoms reported regarding the dermatologic system. Musculoskeletal: No signs and/or symptoms reported regarding the musculoskeletal system. 18:48 Reassessment: Patient and/or family updated on plan of care and expected duration. Pain tm6 level reassessed. Patient is alert, oriented x 3, equal unlabored respirations, skin warm/dry/pink. Patient states symptoms have not improved. 19:00 Reassessment: Patient and/or family updated on plan of care and expected duration. Pain vc1 level reassessed. Patient is alert, oriented x 3, equal unlabored respirations, skin warm/dry/pink. Pain: Complains of pain in left upper quadrant Pain currently is 10 out of 10 on a pain scale. 19:00 Neuro: Ndiaye Agitation-Sedation Scale (RASS): +1 Restless. vc1 20:00 Reassessment: No changes from previously documented assessment. Patient and/or family vc1 updated on plan of care and expected duration. Pain level reassessed. Patient is alert, oriented x 3, equal unlabored respirations, skin warm/dry/pink. 21:00 Reassessment: Patient and/or family updated on plan of care and expected duration. Pain vc1 level reassessed. Patient is alert, oriented x 3, equal unlabored respirations, skin warm/dry/pink. Patient states symptoms have improved. Vital Signs: 17:50 Pulse 116; Resp 22; Temp 97.9(TE); Pulse Ox 99% on R/A; Weight 70.76 kg; Height 5 ft. 1 ss in. ; 17:52 BP 148 / 91; ss 18:01 BP 172 / 92; Pulse 108; Resp 22; Temp 97(TE); Pulse Ox 97% on R/A; tm6 18:49 BP 142 / 79; Pulse 76; Resp 22; Pulse Ox 100% ; tm6 18:49 Pain 10/10; tm6 19:00 BP 182 / 90; Pulse 97; Resp 20; Pulse Ox 100% ; Pain 10/10; vc1 20:21 BP 161 / 84; Pulse 82; Resp 20; Pulse Ox 97% ; vc1 17:50 Body Mass Index 29.48 (70.76 kg, 154.94 cm) ss 18:49 Pain Scale: Adult tm6 19:00 Pain Scale: Adult vc1 ED Course: 17:46 Patient arrived in ED. im 17:49 Mukesh Marks MD is Attending Physician. ec2 17:52 Triage completed. ss 17:52 Arm band placed on right wrist. ss 17:56 Wing Felix, LATOYA is Primary Nurse. tm6 18:01 Patient has correct armband on for positive identification. Placed in gown. Bed in low tm6 position. Call light in reach. Side rails up X 1. Provided Education on: need for blood draw. 18:18 Inserted saline lock: 20 gauge in right forearm, using aseptic technique. tm6 19:14 Attending Physician role handed off by Mukesh Marks MD sp3 19:14 Elena Baker MD is Attending Physician. sp3 19:20 CT Abd/Pelvis - IV Contrast Only In Process Unspecified. EDMS 21:36 No provider procedures requiring assistance completed. IV discontinued, intact, vc1 bleeding controlled, No redness/swelling at site. Pressure dressing applied. Administered Medications: 18:17 Drug: Ondansetron IVP 4 mg IVP once; over 2 minutes Route: IVP; Site: right forearm; tm6 19:00 Follow up: Response: No adverse reaction; No change in condition vc1 18:18 Drug: NS 0.9% IV 1000 ml IV at 1 bolus Per protocol; 1000 mL bolus Route: IV; Rate: 1 tm6 bolus; Site: right forearm; 18:18 Drug: morphine IVP or IV 4 mg IVP once over 4 mins Route: IVP; Infused Over: 4 mins; tm6 Site: right forearm; 21:19 Follow up: Response: No adverse reaction; No change in condition vc1 19:07 Drug: morphine IVP or IV 4 mg IVP once over 4 mins Route: IVP; Infused Over: 4 mins; vc1 Site: right antecubital; 19:45 Follow up: Response: No adverse reaction; No change in condition vc1 19:59 Drug: HYDROmorphone IVP 1 mg IVP once Route: IVP; Site: right antecubital; vc1 21:19 Follow up: Response: No adverse reaction; Pain is decreased vc1 20:00 Drug: NS 0.9% IV 1000 ml IV at 1 bolus Per protocol; 1000 mL bolus Route: IV; Rate: 1 vc1 bolus; Site: right antecubital; 21:38 Follow up: IV Status: Completed infusion; IV Intake: 1000ml vc1 Medication: 18:01 VIS not applicable for this client. tm6 Intake: 21:38 IV: 1000ml; Total: 1000ml. vc1 Outcome: 20:35 Discharge ordered by . sp3 21:37 Discharged to home ambulatory, with significant other, vc1 21:37 Condition: good 21:37 Discharge instructions given to patient, Instructed on discharge instructions, follow up and referral plans. medication usage, Demonstrated understanding of instructions, follow-up care, medications, Prescriptions given X 1, 21:37 Patient left the ED. vc1 Signatures: Dispatcher [employer] Karen Sanford RN RN ss Elena Baker MD MD sp3 Elin Epperson RN RN vc1 Melba Ball Edwin, MD MD ec2 Wing Felix RN RN tm6
[2023-04-07 22:01] VITALS: TEMP 97
[2023-04-07 22:05] VITALS: BP 161/84; O2SAT 97
== END 2023-04-07 21:37 | disposition home or self-care (01) ==
LOC: ER 17:43
DX: K85.20 Alcohol induced acute pancreatitis without necrosis or infection (principal)
CPT/HCPCS: 36415; 74177; 80053; 81001; 83690; 85025; 87635; 87804; 99284; J1170; J2405; J7030; Q9967

== ENCOUNTER 2024-04-29 05:19 | Inpatient (IN) | payer BC, SELFPAY ==
[2024-04-29] MEDS ORDERED: ONDANSETRON 4 MG/2 ML VIAL ONE (06:35)
[2024-04-29] MEDS ORDERED: MORPHINE 4 MG/ML SYR ONE ×2 (06:35→10:43)
[2024-04-29] MEDS ORDERED: KETOROLAC 30 MG/ML INJ ONE (06:35)
[2024-04-29] MEDS ORDERED: NA CHLORIDE 0.9% 1,000 ML ONE ×2 (06:36→10:43)
[2024-04-29] MEDS ORDERED: FAMOTIDINE 20 MG/2 ML VIAL IV ONE (06:36)
[2024-04-29] MEDS ORDERED: MORPHINE 2 MG/ML SYR ONE (06:36)
[2024-04-29 07:05] LABS: Albumin/Globulin Ratio 0.8 (1.1-1.8); Anion Gap 11.6 mEq/L (5.0-15.0); Bilirubin Total 0.7 mg/dL (0.2-1.0); Globulin 5.3 g/dL (2.3-3.5); Potassium 3.6 mEq/L (3.5-5.1); Protein, Total 9.3 g/dL (6.4-8.2)
[2024-04-29 07:10] LABS: Absolute Lymphocytes (CBC) 1.5 K/uL (0.7-4.9); Absolute Monocytes 0.6 K/uL (0.1-1.3); Absolute Neutrophil 9.9 K/uL (1.8-8.0); Basophils % 0.3 % (0-1.3); Eosinophils % 0.1 % (0-4.4); Hematocrit 45.8 % (36.0-45.0); Hemoglobin 15.1 g/dL (12.0-15.0); Lymphocytes % 12.1 % (15.3-44.8); MCH 32.2 pg (27.0-35.0); MCHC 32.9 g/dL (32.0-36.0); MCV 97.7 fL (80-100); MPV 8.5 fL (7.6-11.3); Monocytes % 4.7 % (3.3-12.3); Neutrophils % 82.8 % (41.7-73.7); Nucleated Red Blood Cells % 0.1 % (0-0); Platelets 260 thou/uL (152-406); RBC Red Blood Cell Count 4.69 M/uL (3.86-4.86); Red Cell Distribution Width 13.4 % (12.1-15.2)
--- NOTE | 2024-04-29 08:26 | RAD REPORT ---
EXAMINATION: CT Abdomen Pelvis W Contrast CLINICAL INDICATION: Female, 53 years old. ABD PAIN TECHNIQUE: CT abdomen and pelvis was performed, after the administration of IV contrast, [facility]. Axial, sagittal and coronal reconstructions were obtained. One or more of the following dose reduction techniques were used: Automated exposure control, adjustment of the mA and k V according to patient size, and iterative reconstruction. Unless otherwise specified, incidental findings do not require dedicated imaging follow-up. COMPARISON: 04/07/2023 FINDINGS: LOWER CHEST: The visualized lung bases are clear. LIVER: Mild fatty liver is present. No focal lesion or biliary dilatation is seen. Focus of calcifi cation involving segment IVb is stable. BILIARY SYSTEM: No suspicious abnormalities. SPLEEN: Normal size. No focal lesion. PANCREAS: No focal mass, or ductal dilation. Mild swelling and peripancreatic fluid, most pronounced along the body and tail of the pancreas. No adjacent fluid collections. No regional hypoenhancement. ADRENALS: Normal; no mass. KIDNEYS: Normal size and contour. No hydronephrosis. URINARY BLADDER: Unremarkable. GASTROINTESTINAL TRACT: No evidence of free air, significant intra-abdominal free fluid, bowel obstru ction or abscess. APPENDIX: Normal appendix. LYMPH NODES: No lymphadenopathy. MUSCULOSKELETAL: No acute or suspicious osseous abnormality. ADDITIONAL FINDINGS: None. IMPRESSION: Changes of acute interstitial pancreatitis centered on the body and tail. No peripancreatic fluid or other evidence of complications.
--- NOTE | 2024-04-29 08:31 | RAD REPORT ---
CLINICAL HISTORY: Abdominal pain. COMPARISON: None. TECHNIQUE: US ABDOMEN LIMITED 04/29/2024 5:27 AM [facility] FINDINGS: Liver is normal in echotexture. Common bile duct measures 3 mm. Portal vein is patent. Gallbladder is normally distended without wall thickening, gallstones or pericholecystic fluid. IMPRESSION: Unremarkable gallbladder. Electronically signed by: Joel Santa MD 04/29/2024 06:35 AM [facility] RP Due to temporary technical issues with the PACS/[employer] reporting system, reports are being ludin d by the in-house radiologist without review as a courtesy to ensure prompt reporting the interpreting radiologist is fully responsible for the content of the report. Transcribed Date/Time: 04/29/2024 8:31 AM
--- NOTE | 2024-04-29 09:41 | ER ---
Nurse's Notes [facility] Name: Kathia Avery Age: 53 yrs Sex: Female : 1970 Arrival Date: 04/29/2024 Time: 05:19 Bed 2 Private MD: Diagnosis: Alcohol induced acute pancreatitis without necrosis or infection Presentation: 04/29 06:13 Chief complaint: Patient states: I have had severe right upper abd pain that radiates vc1 across my belly for three days. Coronavirus screen: At this time, the client does not indicate any symptoms associated with coronavirus-19. Ebola Screen: Patient negative for fever greater than or equal to 101.5 degrees Fahrenheit, and additional compatible Ebola Virus Disease symptoms Patient denies exposure to infectious person. Patient denies travel to an Ebola-affected area in the 21 days before illness onset. No symptoms or risks identified at this time. Initial Sepsis Screen: Does the patient meet any 2 criteria? No. Patient's initial sepsis screen is negative. Does the patient have a suspected source of infection? No. Patient's initial sepsis screen is negative. Risk Assessment: Do you want to hurt yourself or someone else? Patient reports no desire to harm self or others. Onset of symptoms was April 26, 2024. 06:13 Method Of Arrival: EMS: [facility] vc1 06:13 Acuity: FELISHA 3 vc1 Triage Assessment: 06:14 General: Appears in no apparent distress. uncomfortable, Behavior is calm, cooperative, vc1 appropriate for age. Pain: Complains of pain in right upper quadrant and left upper quadrant Pain currently is 10 out of 10 on a pain scale. EENT: No deficits noted. No signs and/or symptoms were reported regarding the EENT system. Neuro: No deficits noted. Level of Consciousness is awake, alert, obeys commands, Oriented to person, place, time, situation, Appropriate for age. Cardiovascular: Denies chest pain, Heart tones S1 S2 present Capillary refill < 3 seconds in bilateral fingers Patient's skin is warm and dry. Respiratory: Airway is patent Respiratory effort is even, unlabored, Respiratory pattern is regular, symmetrical, Breath sounds are clear bilaterally. GI: Abdomen is flat, non-distended, Bowel sounds present X 4 quads. Abd is soft and non tender X 4 quads. Reports upper abdominal pain, nausea, Pain is 10 out of 10 on a pain scale. vomiting. : No signs and/or symptoms were reported regarding the genitourinary system. Derm: No signs and/or symptoms reported regarding the dermatologic system. Musculoskeletal: No signs and/or symptoms reported regarding the musculoskeletal system. Historical: - Allergies: 06:14 PENICILLINS; vc1 06:14 Sulfa (Sulfonamide Antibiotics); vc1 - Home Meds: 06:14 buprenorphine-naloxone 8-2 mg sublingual Tablet, Sublingual [Active]; vc1 - PMHx: 06:14 Chronic pain; back; vc1 - PSHx: 06:14 hysterectomy (Chronic pain); vc1 - Immunization history:: Adult Immunizations up to date. - Infectious Disease History:: Denies. - Social history:: Smoking status: Patient reports the use of cigarette tobacco products, smokes one-half pack cigarettes per day, Patient/guardian denies using alcohol, street drugs. - Family history:: not pertinent. - Hospitalizations: : No recent hospitalization is reported. Screenin:30 [facility] ED Fall Risk Assessment (Adult) History of falling in the last 3 months, lg3 including since admission No falls in past 3 months (0 pts) Confusion or Disorientation No (0 pts) Intoxicated or Sedated No (0 pts) Impaired Gait No (0 pts) Mobility Assist Device Used No (0 pt) Altered Elimination No (0 pt) Score/Fall Risk Level 0 - 2 = Low Risk Oriented to surroundings, Maintained a safe environment, Educated pt \T\ family on fall prevention, incl call for assistance when getting out of bed, Assessed \T\ reinforced patient's understanding of fall precautions. Abuse screen: Denies threats or abuse. Denies injuries from another. Nutritional screening: No deficits noted. Tuberculosis screening: No symptoms or risk factors identified. Assessment: 06:30 General: Appears in no apparent distress. uncomfortable, Behavior is cooperative, lg3 fussy. Pain: Complains of pain in abdomen Pain currently is 10 out of 10 on a pain scale. Neuro: No deficits noted. Ndiaye Agitation-Sedation Scale (RASS): 0 - Alert and Calm Level of Consciousness is awake, alert, obeys commands, Oriented to person, place, time, situation. Cardiovascular: No deficits noted. Denies chest pain, shortness of breath, Capillary refill < 3 seconds Clubbing of nail beds is absent JVD is absent Patient's skin is warm and dry. Respiratory: No deficits noted. Airway is patent Respiratory effort is even, unlabored, Respiratory pattern is regular, symmetrical. GI: No deficits noted. Abdomen is round non-distended, Bowel sounds present X 4 quads. Abd is soft X 4 quads Reports lower abdominal pain, upper abdominal pain, cramping, diarrhea, nausea. : No signs and/or symptoms were reported regarding the genitourinary system. EENT: No deficits noted. No signs and/or symptoms were reported regarding the EENT system. Derm: No deficits noted. No signs and/or symptoms reported regarding the dermatologic system. Skin is intact, is healthy with good turgor, Skin is dry, Skin is normal, Skin temperature is warm. Musculoskeletal: No deficits noted. No signs and/or symptoms reported regarding the musculoskeletal system. Circulation, motion, and sensation intact. Range of motion: intact in all extremities. 09:06 General: Appears in no apparent distress. Behavior is calm, cooperative, appropriate ap3 for age. Pain: Complains of pain in abdomen. Neuro: Level of Consciousness is awake, alert, obeys commands, Oriented to person, place, time, situation, Appropriate for age. Cardiovascular: Patient's skin is warm and dry. Respiratory: Airway is patent Respiratory effort is even, unlabored, Respiratory pattern is regular, symmetrical. Musculoskeletal: Range of motion: intact in all extremities. Vital Signs: 06:13 BP 153 / 83; Pulse 52; Resp 18; Temp 98.3; Pulse Ox 100% ; Weight 68.04 kg; Height 5 vc1 ft. 0 in. ; Pain 10/10; 11:00 BP 145 / 78; Pulse 55; Resp 16; Pulse Ox 99% ; ko1 12:00 BP 150 / 80; Pulse 64; Resp 16; Pulse Ox 100% ; ko1 14:00 BP 138 / 77; Pulse 59; Resp 15; Pulse Ox 99% ; ko1 06:13 Body Mass Index 29.29 (68.04 kg, 152.4 cm) vc1 06:13 Pain Scale: Adult vc1 ED Course: 05:25 Patient arrived in ED. gm2 05:27 Helder Campos MD is Attending Physician. sp4 05:55 US Abdomen Limited In Process Unspecified. EDMS 06:14 Triage completed. vc1 06:18 Arm band placed on right wrist. vc1 06:30 Patient has correct armband on for positive identification. Placed in gown. Bed in low lg3 position. Call light in reach. Side rails up X 1. Client placed on continuous cardiac and pulse oximetry monitoring. NIBP monitoring applied. Door closed. Noise minimized. Warm blanket given. Pillow given. 06:30 Patient maintains SpO2 saturation greater than 95% on room air. lg3 06:40 Initial lab(s) drawn, by ED staff, sent to lab. Flu and/or RSV swab sent to lab. lg3 Inserted saline lock: 20 gauge in left antecubital area, using aseptic technique. Blood collected. Flushed with 10 mL NS. 06:41 Influenza Screen (a \T\ B) Sent. lg3 06:41 CBC with Diff Sent. lg3 06:41 CMP Sent. lg3 06:41 Lipase Sent. lg3 07:24 CT Abd/Pelvis - IV Contrast Only In Process Unspecified. EDMS 08:19 Amy Michel, RN is Primary Nurse. ko1 08:20 Pt visited by . ko1 08:25 Attending Physician role handed off by Helder Campos MD rn 08:25 Bernardino Adames MD is Attending Physician. rn 08:56 ED physician to see patient. Pt visited by. ko1 08:56 No provider procedures requiring assistance completed. ko1 09:[address] is Hospitalizing Provider. rn 09:42 Provided Education on: admission. ko1 09:42 Patient admitted, IV remains in place. ko1 10:48 Urinalysis w/ reflexes Sent. ap3 12:49 1249 CM attempted initial assessment, patient lying in bed with eyes closed, ane respirations even and unlabored. 1437 CM met with patient at the bedside in the ED exam room. Patient identified by name and . Demographic sheet confirmed. PCP none. No MPOA at this time. Patient states she lives with her H[facility] in a single story home and that prior to admission, she performs ADLs independently. No DME, no HH, no home oxygen or other medical services at this time .Her preferred plan is to return home and she states that [facility] will transport her home. CM team will continue to follow and coordinate care. Administered Medications: 06:41 Drug: NS 0.9% IV 1000 ml IV at 1 bolus Per protocol; to be given as a bolus over 60 lg3 minutes Route: IV; Rate: 1 bolus; Site: left antecubital; 08:30 Follow up: Response: No adverse reaction; IV Status: Completed infusion; IV Intake: ko1 1000ml 06:41 Drug: morphine IVP or IV 6 mg IVP once over 4 mins Route: IVP; Infused Over: 4 mins; lg3 Site: left antecubital; 07:00 Follow up: Response: No adverse reaction ko1 06:41 Drug: Ketorolac IVP 30 mg IVP once Route: IVP; Site: left antecubital; lg3 07:00 Follow up: Response: No adverse reaction ko1 06:41 Drug: Famotidine IVP 20 mg IVP once; dilute with 10 mL 0.9% NaCl; give over 2 minutes lg3 Route: IVP; Site: left antecubital; 07:00 Follow up: Response: No adverse reaction ko1 06:42 Drug: Ondansetron IVP 4 mg IVP once; over 2 minutes Route: IVP; Site: left antecubital; lg3 07:00 Follow up: Response: No adverse reaction ko1 10:58 Drug: NS 0.9% IV 1000 ml IV at 1000 ml once; to be given as a bolus over 60 minutes cm10 Route: IV; Rate: 1000 ml; Site: left antecubital; 13:00 Follow up: Response: No adverse reaction; IV Status: Completed infusion; IV Intake: ko1 1000ml 10:58 Drug: morphine IVP or IV 4 mg IVP once over 4 mins {Note: Pain level: 7.} Route: IVP; cm10 Infused Over: 4 mins; Site: left antecubital; 11:13 Follow up: Response: No adverse reaction ko1 Medication: 09:07 VIS not applicable for this client. ap3 Intake: 08:30 IV: 1000ml; Total: 1000ml. ko1 13:00 IV: 1000ml; Total: 2000ml. ko1 Outcome: 09:41 Decision to Hospitalize by Provider. rn 15:22 Admitted to Med/surg accompanied by tech, via wheelchair, room 201, with chart, ko1 15:22 Condition: stable 15:22 Instructed on the need for admit, 15:44 Patient left the ED. ko1 Signatures: Dispatcher [employer] EDMS Bernardino Adames MD MD rn Prokisch, Amanda RN RN ap3 Jia Alcazar RN RN lg3 Elin Epperson RN RN vc1 Amy Michel RN RN ko1 Helder Campos MD MD sp4 Ria Urbano RN RN cm10 [place] 2 Alpa Frazier RN RN ane Corrections: (The following items were deleted from the chart) 14:56 14:55 76.66 kg; ko1 ko1
--- NOTE | 2024-04-29 09:41 | EDPHYS ---
Physician Documentation [facility] Name: Kathia Avery Age: 53 yrs Sex: Female : 1970 Arrival Date: 04/29/2024 Time: 05:19 Bed 2 Private MD: ED Physician Bernardino Adames HPI: 04/29 05:29 This 53 yrs old Female presents to ER via Unassigned with complaints of sp4 Nausea/Vomiting, Abdominal Pain. 08:55 The patient presents to the emergency department with nausea, vomiting, abdominal pain. rn Severity of symptoms: At their worst the symptoms were moderate in the emergency department the symptoms are unchanged. The patient has not experienced similar symptoms in the past. Patient reports upper abdominal pain with nausea. Patient states has not been drinking as much alcohol lately but son states otherwise. No known gallbladder problems. Patient denies previous episodes of pancreatitis.. Historical: - Allergies: 06:14 PENICILLINS; vc1 06:14 Sulfa (Sulfonamide Antibiotics); vc1 - Home Meds: 06:14 buprenorphine-naloxone 8-2 mg sublingual Tablet, Sublingual [Active]; vc1 - PMHx: 06:14 Chronic pain; back; vc1 - PSHx: 06:14 hysterectomy (Chronic pain); vc1 - Immunization history:: Adult Immunizations up to date. - Infectious Disease History:: Denies. - Social history:: Smoking status: Patient reports the use of cigarette tobacco products, smokes one-half pack cigarettes per day, Patient/guardian denies using alcohol, street drugs. - Family history:: not pertinent. - Hospitalizations: : No recent hospitalization is reported. ROS: 08:55 Constitutional: Negative for fever, chills, and weight loss, Cardiovascular: Negative rn for chest pain, palpitations, and edema, Respiratory: Negative for shortness of breath, cough, wheezing, and pleuritic chest pain, Abdomen/GI: Negative for diarrhea, and constipation, Neuro: Negative for headache, weakness, numbness, tingling, and seizure, Exam: 08:55 Constitutional: This is a well developed, well nourished patient who is awake, alert, rn appears uncomfortable Cardiovascular: Regular rate and rhythm. No pulse deficits. Respiratory: No increased work of breathing, no retractions or nasal flaring. Abdomen/GI: Soft, epigastric tenderness. No distention Vital Signs: 06:13 BP 153 / 83; Pulse 52; Resp 18; Temp 98.3; Pulse Ox 100% ; Weight 68.04 kg; Height 5 vc1 ft. 0 in. ; Pain 10/10; 11:00 BP 145 / 78; Pulse 55; Resp 16; Pulse Ox 99% ; ko1 12:00 BP 150 / 80; Pulse 64; Resp 16; Pulse Ox 100% ; ko1 14:00 BP 138 / 77; Pulse 59; Resp 15; Pulse Ox 99% ; ko1 06:13 Body Mass Index 29.29 (68.04 kg, 152.4 cm) vc1 06:13 Pain Scale: Adult vc1 MDM: 05:27 Medical Screening Exam initiated sp4 08:55 Differential diagnosis: Nonspecific abd pain, gastritis, pancreatitis, viral rn gastroenteritis, gastroenteritis. Data reviewed: vital signs, nurses notes, lab test result(s), radiologic studies, CT scan, and as a result, I will admit patient. Consideration of Admission/Observation Patient was admitted/placed on observation. Escalation of care including admission/observation considered. Counseling: I had a detailed discussion with the patient and/or guardian regarding the historical points, exam findings, and any diagnostic results supporting the discharge/admit diagnosis, lab results, radiology results, the need for further work-up and treatment in the hospital. ED course: Patient with uncontrolled abdominal pain, CT and labs consistent with acute pancreatitis. Likely alcoholic pancreatitis. Will admit for further care and pain control.. 21:11 ED course: COMPARISON: 04/07/2023 FINDINGS: LOWER CHEST: The visualized lung bases are sp4 clear. LIVER: Mild fatty liver is present. No focal lesion or biliary dilatation is seen. Focus of calcification involving segment IVb is stable. BILIARYSYSTEM: No suspicious abnormalities. SPLEEN: Normal size. No focal lesion. PANCREAS: No focal mass, or ductal dilation. Mild swelling and peripancreatic fluid, most pronounced along the body and tail of the pancreas. No adjacent fluid collections. No regional hypoenhancement. ADRENALS: Normal; no mass. KIDNEYS: Normal size and contour. No hydronephrosis. URINARYBLADDER: Unremarkable. GASTROINTESTINAL TRACT: No evidence of free air, significant intra-abdominal free fluid, bowel obstruction or abscess. APPENDIX: Normal appendix. LYMPH NODES: No lymphadenopathy. MUSCULOSKELETAL: No acute or suspicious osseous abnormality. ADDITIONAL FINDINGS: None. IMPRESSION: Changes of acute interstitial pancreatitis centered on the body and tail. No peripancreatic fluid or other evidence of complications. . ED course: CLINICAL HISTORY: Abdominal pain. COMPARISON: None. TECHNIQUE: US ABDOMEN LIMITED 04/29/2024 5:27 AM INFORMATION RECEPTIONIST FINDINGS: Liver is normal in echotexture. Common bile duct measures 3 mm. Portal vein is patent. Gallbladder is normally distended without wall thickening, gallstones or pericholecystic fluid. IMPRESSION: Unremarkable gallbladder. Electronically signed by: Joel Santa MD 04/29/2024 06:35. 04/29 05:27 Order name: CBC with Diff; Complete Time: 08:34 sp4 04/29 05:27 Order name: CMP; Complete Time: 08:34 sp4 04/29 05:27 Order name: Lipase; Complete Time: 08:34 sp4 04/29 05:27 Order name: Urinalysis w/ reflexes; Complete Time: 21:09 sp4 04/29 06:32 Order name: Influenza Screen (a \T\ B); Complete Time: 08:34 sp4 04/29 06:43 Order name: Troponin High Sensitivity; Complete Time: 21:09 sp4 04/29 06:43 Order name: BNP; Complete Time: 21:09 sp4 04/29 05:27 Order name: CT Abd/Pelvis - IV Contrast Only; Complete Time: 08:34 sp4 04/29 05:27 Order name: US Abdomen Limited; Complete Time: 08:34 sp4 04/29 05:27 Order name: IV Saline Lock; Complete Time: 06:41 sp4 04/29 05:27 Order name: Labs collected and sent; Complete Time: 06:41 sp4 Administered Medications: 06:41 Drug: NS 0.9% IV 1000 ml IV at 1 bolus Per protocol; to be given as a bolus over 60 lg3 minutes Route: IV; Rate: 1 bolus; Site: left antecubital; 08:30 Follow up: Response: No adverse reaction; IV Status: Completed infusion; IV Intake: ko1 1000ml 06:41 Drug: morphine IVP or IV 6 mg IVP once over 4 mins Route: IVP; Infused Over: 4 mins; lg3 Site: left antecubital; 07:00 Follow up: Response: No adverse reaction ko1 06:41 Drug: Ketorolac IVP 30 mg IVP once Route: IVP; Site: left antecubital; lg3 07:00 Follow up: Response: No adverse reaction ko1 06:41 Drug: Famotidine IVP 20 mg IVP once; dilute with 10 mL 0.9% NaCl; give over 2 minutes lg3 Route: IVP; Site: left antecubital; 07:00 Follow up: Response: No adverse reaction ko1 06:42 Drug: Ondansetron IVP 4 mg IVP once; over 2 minutes Route: IVP; Site: left antecubital; lg3 07:00 Follow up: Response: No adverse reaction ko1 10:58 Drug: NS 0.9% IV 1000 ml IV at 1000 ml once; to be given as a bolus over 60 minutes cm10 Route: IV; Rate: 1000 ml; Site: left antecubital; 13:00 Follow up: Response: No adverse reaction; IV Status: Completed infusion; IV Intake: ko1 1000ml 10:58 Drug: morphine IVP or IV 4 mg IVP once over 4 mins {Note: Pain level: 7.} Route: IVP; cm10 Infused Over: 4 mins; Site: left antecubital; 11:13 Follow up: Response: No adverse reaction ko1 Disposition Summary: 04/29/24 09:41 Hospitalization Ordered Notes: Hospitalization Status: Inpatient Admission rn Provider: Radha Street rn Location: Telemetry/[facility] (Inpatient) rn Condition: Stable rn Problem: new rn Symptoms: are unchanged rn Bed/Room Type: Standard rn Room Assignment: 201(04/29/24 14:33) bd Diagnosis - Alcohol induced acute pancreatitis without necrosis or infection rn Forms: - Medication Reconciliation Form rn - SBAR form rn - Leadership Thank You Letter rn Signatures: Dispatcher [employer] EDMS Nicolasa Gordon Roman, MD MD rn Attema, Lee, INFORMATION SECURITY DIRECTOR-C INFORMATION SECURITY DIRECTOR-Cla1 Jia Alcazar RN RN lg3 Elin Epperson RN RN vc1 Helder Campos MD MD sp4 Ria Urbano RN RN cm10 Amy Michel RN ko1 Corrections: (The following items were deleted from the chart) 05:27 05:27 CBC+H.LAB.BRZ ordered. EDMS EDMS 05:27 05:27 COMPREHENSIVE METABOLIC PANEL+C.LAB.BRZ ordered. EDMS EDMS 05:27 05:27 LIPASE+C.LAB.BRZ ordered. EDMS EDMS 05:27 05:27 Urinalysis+U.LAB.BRZ ordered. EDMS EDMS 05:28 05:27 Abdomen Pelvis W Con+CT.RAD.BRZ ordered. EDMS EDMS 05:28 05:28 Abdomen Limited+US.RAD.BRZ ordered. EDMS EDMS 14:33 09:41 rn bd
[2024-04-29 11:06] LABS: Specific Gravity > 1.030 (1.005-1.030); Sqamous Epithelial <5 /HPF (None Seen); Urine Bacteria <20 /HPF (<20); Urine Bilirubin NEGATIVE (Negative); Urine Blood Negative (Negative); Urine Clarity Turbid (Clear); Urine Color Light-Yellow (Yellow); Urine Culture Reflex Order NOT NEEDED; Urine Glucose NEGATIVE (Negative); Urine Ketones 1+ (Negative); Urine Microscopic Reflex YN ORDER UMIC; Urine Mucus Slight /HPF (None Seen); Urine Nitrite NEGATIVE (Negative); Urine Protein 1+ (Negative); Urine RBC <5 /HPF (None Seen); Urine Urobilinogen 2+ (Normal); Urine WBC <5 /HPF (<5); Urine pH 6.5 (5.0-7.0)
[2024-04-29 11:16] LABS: Troponin High Sensitivity 44.4 (<58.9)
--- NOTE | 2024-04-29 15:16 | P.HP ---
Certification for Inpatient Patient admitted to: Inpatient With expected LOS: >2 Midnights Patient will require the following post-hospital care: None Practitioner: I am a practitioner with admitting privileges, knowledge of patient current condition, hospital course, and medical plan of care. Services: Services provided to patient in accordance with Admission requirements found in Title 42 Section 412.3 of the Code of Federal Regulations Patient History Date of Service: 04/29/24 Reason for admission: Acute pancreatitis History of Present Illness: 53-year-old female with past medical history presents emergency department chief complaint of abdominal pain, nausea vomiting for last 3 days. Per chart review she does have 1 surgical episode of pancreatitis, she apparently used to drink heavily and did have 1 drink during Thanksgiving denies drinking heavily. She was evaluated in the emergency department her labs were significant for a lipase of 1569 CT abdomen pelvis with IV contrast was performed which showed acute uncomplicated pancreatitis, ultrasound was also performed is unremarkable for any abnormalities. ED Provider wishes to admit patient for acute pancreatitis - Past Medical/Surgical History -: Hysterectomy Psychosocial/ Personal History: Home with family - Social History Place of Residence: Home Review of Systems 10-point ROS is otherwise unremarkable Gastrointestinal: Nausea, Vomiting, Abdominal Pain Physical Examination - Physical Exam General: Alert, In no apparent distress, Oriented x3 HEENT: Atraumatic, PERRLA, EOMI Neck: Supple, 2+ carotid pulse no bruit, No LAD Respiratory: Clear to auscultation bilaterally, Normal air movement Cardiovascular: Regular rate/rhythm, Normal S1 S2 Gastrointestinal: Normal bowel sounds, Tenderness (moderate epigastric Pain/tenderness) Musculoskeletal: No tenderness Integumentary: No rashes Neurological: Normal gait, Normal speech, Normal strength at 5/5 x4 extr, Normal tone, Normal affect Lymphatics: No axilla or inguinal lymphadenopathy - Studies Laboratory Data (last 24 hrs) 04/29/24 04/29/24 06:39 06:39 WBC 12.00 H Hgb 15.1 H Hct 45.8 H Plt Count 260 Sodium 136 Potassium 3.6 BUN 10 Creatinine 1.04 H Glucose 139 H Total Bilirubin 0.7 AST 24 ALT 21 Alkaline Phosphatase 112 Lipase 1569 H Microbiology Data (last 24 hrs): 04/29/24 06:40 Nasopharnyx Influenza Type A Antigen Screen - Final 04/29/24 06:40 Nasopharnyx Influenza Type B Antigen Screen - Final Assessment and Plan - Plan Assessment: Acute pancreatitis Plan: Acute pancreatitis NPO, IVF, as pain medications and antiemetics Monitor chemistry/lipase Advance diet slowly History of alcohol use, related to pancreatitis Will check lipid panel for triglycerides as well DVT PPX: Lovenox Code status: Full Discharge Plan: Home Plan to discharge in: 48 Hours - Advance Directives Does patient have a Living Will: No Does patient have a Durable POA for Healthcare: No - Code Status/Comfort Care Code Status Assessed: Yes (Full code) Critical Care: No Time Spent Managing Pts Care (In Minutes): 58
[2024-04-29 16:00] VITALS: BMI 29.7
[2024-04-29] MEDS ORDERED: MORPHINE 2 MG/ML SYR IV PRN (16:37)
[2024-04-29] MEDS: Ringers Lactate 1,000 ML IV SCH (17:43)
[2024-04-29] MEDS: MORPHINE 2 MG/ML SYR IV PRN (17:43)
[2024-04-29] MEDS: ONDANSETRON 4 MG/2 ML VIAL IV PRN (17:45)
[2024-04-29] MEDS: NICOTINE 14 MG/PAT TD SCH (18:35)
[2024-04-30 07:07] LABS: Absolute Lymphocytes (CBC) 1.9 K/uL (0.7-4.9); Absolute Monocytes 0.9 K/uL (0.1-1.3); Absolute Neutrophil 8.3 K/uL (1.8-8.0); Basophils % 0.3 % (0-1.3); Eosinophils % 0.3 % (0-4.4); Hematocrit 39.7 % (36.0-45.0); Lymphocytes % 17.3 % (15.3-44.8); MCH 32.1 pg (27.0-35.0); MCHC 32.8 g/dL (32.0-36.0); MCV 97.8 fL (80-100); MPV 8.8 fL (7.6-11.3); Monocytes % 7.8 % (3.3-12.3); Neutrophils % 74.3 % (41.7-73.7); Nucleated Red Blood Cells % 0.1 % (0-0); Platelets 183 thou/uL (152-406); RBC Red Blood Cell Count 4.06 M/uL (3.86-4.86); Red Cell Distribution Width 13.2 % (12.1-15.2)
[2024-04-30 07:34] LABS: Albumin 2.9 g/dL (3.4-5.0); Albumin/Globulin Ratio 0.7 (1.1-1.8); Anion Gap 7.7 mEq/L (5.0-15.0); Bilirubin Total 0.8 mg/dL (0.2-1.0); Globulin 4.2 g/dL (2.3-3.5); Magnesium 1.5 mg/dL (1.6-2.4); Potassium 3.7 mEq/L (3.5-5.1); Protein, Total 7.1 g/dL (6.4-8.2)
[2024-04-30] MEDS ORDERED: ACETAMINOPHEN 325 MG TABLET PO PRN (07:57)
--- NOTE | 2024-04-30 08:41 | P.PN ---
Date of Service: 04/30/24 Subjective: Still with abdominal pain Slightly improved from yesterday Tolerating sips of water ROS: 10 point ROS as noted above, otherwise negative Physical exam GEN: Alert, oriented, NAD HEENT: Normal conjunctiva, sclera anicteric CV: Regular rate and rhythm, no edema Pulm: Nonlabored respirations on room air ABD: Soft, moderate epigastric tenderness, nondistended MSK: No joint tenderness Integumentary: No rashes Neuro: Normal speech, normal affect Vitals reviewed Assessment: Acute pancreatitis Tobacco use disorder Plan: Acute pancreatitis NPO, IVF, as pain medications and antiemetics Monitor chemistry/lipase-improving Advance diet slowly History of alcohol use, related to pancreatitis Triglycerides within normal limits Tobacco use disorder Counseled on need for cessation NicoDerm patch supplied DVT PPX: Lovenox Code status: Full Discharge Plan: Home Plan to discharge in: 48 Hours Time Spent Managing Pts Care (In Minutes): 35
[2024-04-30] MEDS: ENOXAPARIN 40 MG/0.4 ML SQ SCH (10:37)
[2024-04-30] MEDS: MAGNESIUM SULFATE 1 gm IVPB 1 GM/100 ML BAG IV ONE ×2 (12:10→22:41)
[2024-04-30] MEDS: POTASSIUM CL SA 10 MEQ TAB PO ONE (12:11)
[2024-05-01] MEDS: ONDANSETRON 4 MG/2 ML VIAL IV PRN (01:21)
[2024-05-01 02:39] VITALS: O2SAT 92
[2024-05-01 06:24] LABS: Absolute Basophils 0.1 K/uL (0-0.5); Absolute Eosinophils 0.1 K/uL (0-0.5); Absolute Lymphocytes (CBC) 1.4 K/uL (0.7-4.9); Absolute Neutrophil 8.8 K/uL (1.8-8.0); Basophils % 0.5 % (0-1.3); Eosinophils % 0.5 % (0-4.4); Hematocrit 37.5 % (36.0-45.0); Hemoglobin 12.5 g/dL (12.0-15.0); Lymphocytes % 12.1 % (15.3-44.8); MCH 32.4 pg (27.0-35.0); MCHC 33.3 g/dL (32.0-36.0); MCV 97.3 fL (80-100); MPV 8.3 fL (7.6-11.3); Monocytes % 8.5 % (3.3-12.3); Neutrophils % 78.4 % (41.7-73.7); Nucleated Red Blood Cells % 0.1 % (0-0); Platelets 171 thou/uL (152-406); RBC Red Blood Cell Count 3.85 M/uL (3.86-4.86); Red Cell Distribution Width 13.1 % (12.1-15.2)
[2024-05-01 06:40] LABS: Albumin 2.7 g/dL (3.4-5.0); Albumin/Globulin Ratio 0.6 (1.1-1.8); Anion Gap 9.6 mEq/L (5.0-15.0); Bilirubin Total 1.1 mg/dL (0.2-1.0); Globulin 4.4 g/dL (2.3-3.5); Potassium 3.6 mEq/L (3.5-5.1); Protein, Total 7.1 g/dL (6.4-8.2)
[2024-05-01] MEDS: HYDROMORPHONE HCL 0.5 MG/0.5 ML INJ IV PRN (08:08)
[2024-05-01] MEDS: POTASSIUM CL SA 10 MEQ TAB PO ONE (08:08)
--- NOTE | 2024-05-01 09:39 | P.PN ---
Date of Service: 05/01/24 Subjective: Still with abdominal pain Slightly improved from yesterday Tolerating sips of water ROS: 10 point ROS as noted above, otherwise negative Physical exam GEN: Alert, oriented, NAD HEENT: Normal conjunctiva, sclera anicteric CV: Regular rate and rhythm, no edema Pulm: Nonlabored respirations on room air ABD: Soft, moderate epigastric tenderness, nondistended MSK: No joint tenderness Integumentary: No rashes Neuro: Normal speech, normal affect Vitals reviewed Assessment: Acute pancreatitis Tobacco use disorder Plan: Acute pancreatitis Clear lkiquids, IVF, as pain medications and antiemetics Monitor chemistry/lipase-improving Advance diet slowly History of alcohol use, related to pancreatitis Triglycerides within normal limits Tobacco use disorder Counseled on need for cessation NicoDerm patch supplied DVT PPX: Lovenox Code status: Full Discharge Plan: Home Plan to discharge in: 48 Hours Time Spent Managing Pts Care (In Minutes): 35
[2024-05-01] MEDS: Ringers Lactate 1,000 ML IV SCH (16:08)
[2024-05-02 04:53] LABS: Absolute Eosinophils 0.1 K/uL (0-0.5); Absolute Lymphocytes (CBC) 1.6 K/uL (0.7-4.9); Absolute Neutrophil 9.3 K/uL (1.8-8.0); Basophils % 0.3 % (0-1.3); Eosinophils % 0.8 % (0-4.4); Hematocrit 35.5 % (36.0-45.0); Hemoglobin 11.8 g/dL (12.0-15.0); Lymphocytes % 13.6 % (15.3-44.8); MCH 32.3 pg (27.0-35.0); MCHC 33.4 g/dL (32.0-36.0); MCV 96.8 fL (80-100); MPV 8.4 fL (7.6-11.3); Monocytes % 8.1 % (3.3-12.3); Neutrophils % 77.2 % (41.7-73.7); Nucleated Red Blood Cells % 0.1 % (0-0); Platelets 166 thou/uL (152-406); RBC Red Blood Cell Count 3.67 M/uL (3.86-4.86); Red Cell Distribution Width 12.9 % (12.1-15.2)
[2024-05-02 05:22] LABS: Albumin 2.6 g/dL (3.4-5.0); Albumin/Globulin Ratio 0.6 (1.1-1.8); Anion Gap 9.4 mEq/L (5.0-15.0); Globulin 4.7 g/dL (2.3-3.5); Magnesium 1.8 mg/dL (1.6-2.4); Potassium 3.4 mEq/L (3.5-5.1); Protein, Total 7.3 g/dL (6.4-8.2)
[2024-05-02] MEDS: MAGNESIUM SULFATE 1 gm IVPB 1 GM/100 ML BAG IV ONE (08:52)
[2024-05-02] MEDS: POTASSIUM CL SA 10 MEQ TAB PO ONE (08:52)
[2024-05-02] MEDS ORDERED: HYDROCODONE/APAP 7.5/325 MG TAB PO PRN (09:14)
[2024-05-02] MEDS: PANTOPRAZOLE 40 MG INJ IVP SCH (11:05)
--- NOTE | 2024-05-02 14:01 | P.PN ---
Date of Service: 05/02/24 Subjective: Still with abdominal pain Tolerating small amounts of clear liquids ROS: 10 point ROS as noted above, otherwise negative Physical exam GEN: Alert, oriented, NAD HEENT: Normal conjunctiva, sclera anicteric CV: Regular rate and rhythm, no edema Pulm: Nonlabored respirations on room air ABD: Soft, moderate epigastric tenderness, nondistended MSK: No joint tenderness Integumentary: No rashes Neuro: Normal speech, normal affect Vitals reviewed Assessment: Acute pancreatitis Tobacco use disorder Plan: Acute pancreatitis Clear liquids-will advance as tolerated, IVF, as pain medications and antiemetics Monitor chemistry daily Advance diet slowly History of alcohol use, likely related to pancreatitis Triglycerides within normal limits Tobacco use disorder Counseled on need for cessation NicoDerm patch supplied-tolerating well DVT PPX: Lovenox Code status: Full Discharge Plan: Home Plan to discharge in: 48 Hours Time Spent Managing Pts Care (In Minutes): 35
[2024-05-03 05:16] LABS: Absolute Eosinophils 0.1 K/uL (0-0.5); Absolute Lymphocytes (CBC) 1.7 K/uL (0.7-4.9); Absolute Monocytes 0.9 K/uL (0.1-1.3); Basophils % 0.3 % (0-1.3); Hematocrit 30.8 % (36.0-45.0); Hemoglobin 10.5 g/dL (12.0-15.0); Lymphocytes % 17.8 % (15.3-44.8); MCHC 34.2 g/dL (32.0-36.0); MCV 96.4 fL (80-100); MPV 8.7 fL (7.6-11.3); Monocytes % 8.9 % (3.3-12.3); Nucleated Red Blood Cells % 0.1 % (0-0); Platelets 198 thou/uL (152-406); Red Cell Distribution Width 12.6 % (12.1-15.2)
[2024-05-03 05:48] LABS: Albumin 2.3 g/dL (3.4-5.0); Albumin/Globulin Ratio 0.5 (1.1-1.8); Anion Gap 9.8 mEq/L (5.0-15.0); Bilirubin Total 0.8 mg/dL (0.2-1.0); Globulin 4.3 g/dL (2.3-3.5); Magnesium 1.9 mg/dL (1.6-2.4); Potassium 3.8 mEq/L (3.5-5.1); Protein, Total 6.6 g/dL (6.4-8.2)
[2024-05-03] MEDS: POTASSIUM CL SA 10 MEQ TAB PO ONE (08:22)
[2024-05-03] MEDS: SODIUM CHLORIDE 0.9% 10ML INJ IV PRN (20:26)
[2024-05-04 12:29] VITALS: BP 135/55; TEMP 98.3
--- NOTE | 2024-05-04 14:58 | P.DS ---
Admission Date: 04/29/24 Discharge Date: 05/04/24 Disposition: ROUTINE DISCHARGE Discharge Condition: GOOD Reason for Admission: Acute pancreatitis Brief History of Present Illness: 53-year-old female with past medical history presents emergency department chief complaint of abdominal pain, nausea vomiting for last 3 days. Per chart review she does have 1 surgical episode of pancreatitis, she apparently used to drink heavily and did have 1 drink during Thanksgiving denies drinking heavily. She was evaluated in the emergency department her labs were significant for a lipase of 1569 CT abdomen pelvis with IV contrast was performed which showed acute uncomplicated pancreatitis, ultrasound was also performed is unremarkable for any abnormalities. ED Provider wishes to admit patient for acute pancreatitis Hospital Course: Assessment: Acute pancreatitis Tobacco use disorder Patient was admitted to the hospital for acute uncomplicated pancreatitis. Her pain slowly improved with conservative measures including IV fluids, antiemetics and as needed pain medications. Her diet was slowly advanced to full liquids, she did trial a soft diet last night but this caused her some significant pain and for that reason she has been brought down to full liquid diet and counseled to advance slowly. Total alcohol cessation was also discussed. Patient stable for discharge outpatient follow-up at this time. Vital Signs/Physical Exam: Temp Pulse Resp BP Pulse Ox 98.3 F 50 20 135/55 L 97 05/04/24 12:00 05/04/24 12:00 05/04/24 12:00 05/04/24 12:00 05/04/24 12:00 General: Alert, In no apparent distress, Oriented x3 HEENT: Atraumatic, PERRLA Neck: Supple, JVD not distended Respiratory: Clear to auscultation bilaterally, Normal air movement Cardiovascular: Regular rate/rhythm, Normal S1 S2 Gastrointestinal: Normal bowel sounds, Tenderness (mild epigastric tenderness) Musculoskeletal: No tenderness Integumentary: No rashes Neurological: Normal speech, Normal tone, Normal affect Laboratory Data at Discharge: WBC 9.70 thou/uL (4.3-10.9) 05/03/24 04:52 Hgb 10.5 g/dL (12.0-15.0) L D 05/03/24 04:52 Hct 30.8 % (36.0-45.0) L 05/03/24 04:52 Plt Count 198 thou/uL (152-406) 05/03/24 04:52 Sodium 136 mEq/L (136-145) 05/03/24 04:52 Potassium 3.8 mEq/L (3.5-5.1) 05/03/24 04:52 BUN 5 mg/dL (7-18) L 05/03/24 04:52 Creatinine 0.60 mg/dL (0.55-1.02) 05/03/24 04:52 Glucose 92 mg/dL (74-106) 05/03/24 04:52 Magnesium 1.9 mg/dL (1.6-2.4) 05/03/24 04:52 Total Bilirubin 0.8 mg/dL (0.2-1.0) 05/03/24 04:52 AST 18 U/L (15-37) 05/03/24 04:52 ALT 15 U/L (13-56) 05/03/24 04:52 Alkaline Phosphatase 85 U/L (45-117) 05/03/24 04:52 Triglycerides 57 mg/dL (<150) 04/30/24 06:16 Cholesterol 154 mg/dL (<200) 04/30/24 06:16 HDL Cholesterol 54 mg/dL (40-60) 04/30/24 06:16 Cholesterol/HDL Ratio 2.85 04/30/24 06:16 Lipase 411 U/L (13-75) H 05/03/24 04:52 Home Medications: NK [No Home Meds] 04/30/24 Physician Discharge Instructions: Patient was admitted to the hospital for acute uncomplicated pancreatitis. Her pain slowly improved with conservative measures including IV fluids, antiemetics and as needed pain medications. Her diet was slowly advanced to full liquids, she did trial a soft diet last night but this caused her some significant pain and for that reason she has been brought down to full liquid diet and counseled to advance slowly. Total alcohol cessation was also discussed. Patient stable for discharge outpatient follow-up at this time. Triglycerides 57 cholesterol 104 LDL 89 HDL 54 Diet: full liq Activity: Ad [place] Followup: NONE,NONE [Primary Care Provider] - Time spent managing pt's care (in minutes): 45
== END 2024-05-04 15:27 | disposition home or self-care (01) | DRG 440 ==
LOC: ER 05:19 → ERHOLD 10:29 → 2ND 14:50
PROVIDERS: ADMIT Hospitalist; ATTEND Hospitalist
DX: K85.20 Alcohol induced acute pancreatitis without necrosis or infection (principal); K76.0 Fatty (change of) liver, not elsewhere classified; Z88.0 Allergy status to penicillin; Z71.6 Tobacco abuse counseling; Z88.2 Allergy status to sulfonamides; Z79.899 Other long term (current) drug therapy; Z90.710 Acquired absence of both cervix and uterus
CPT/HCPCS: 36415; 74177; 76705; 80053; 80061; 81001; 83690; 83735; 83880; 84132; 84484; 85025; 87804; 96361; 96374; 96375; 99285; A4216; J1171; J1650; J2270; J2405; J2470; J3475; J7030; J7120; Q9967